=== PATIENT | male | born 1945 | race Caucasian/White ===

== ENCOUNTER 2017-12-16 12:13 | Day surgery (SDC) | payer OTHER, BC ==
[~2017-12-16] VITALS: Ht 182.9 cm; Wt 99.7 kg
[~2017-12-16 12:13] MED LIST: ALLEGRA ALLERG180 MG PO; DAILY VALUE1 EACH PO; FLONASE SENSIM9.9 ML BOTH NARES; FOLIC ACID0.4 MG PO; LO-DOSE ASPIRIN81 M2 PO; LOPRESSOR50 MG PO; NITROSTAT0.4 MG SL; OTEZLA30 MG PO; PLAVIX75 MG PO; PRAVACHOL40 MG PO; PRILOSEC20 MG PO; PRINIVIL10 MG PO; SINGULAIR10 MG PO; SKELAXIN800 MG PO; TREXALL5 MG PO; TYLENOL EXTRA500 MG PO; ULTRAM50 MG PO
[2017-12-16 13:28] VITALS: BP 133/64
[2017-12-16 19:15] VITALS: BP 173/79
[2017-12-16 23:25] VITALS: BP 174/88
[2017-12-17 04:20] VITALS: BP 148/75
[2017-12-17 07:30] VITALS: BP 150/66
[2017-12-17] MEDS ORDERED: TIZANIDINE HCL4 MG PO (08:21)
[2017-12-17] MEDS ORDERED: HYDROCODON-ACE1 EAC7 PO (08:21)
== END 2017-12-17 14:39 | disposition home or self-care (01) ==
LOC: SDC 12:13 → 2SOUTH 16:56 → 3EAST 16:56 → ENRESERV 17:00 → 3EAST 19:28
DX: M47.12 Other spondylosis with myelopathy, cervical region (principal); M48.02 Spinal stenosis, cervical region; M54.12 Radiculopathy, cervical region; I10 Essential (primary) hypertension; I25.2 Old myocardial infarction; Z79.82 Long term (current) use of aspirin; Z79.02 Long term (current) use of antithrombotics/antiplatelets; Z87.891 Personal history of nicotine dependence; Z95.1 Presence of aortocoronary bypass graft
CPT/HCPCS: 72020; 72040; 76000; 86850; 86900; 86901; C1713; G0378; J0690; J1100; J1170; J2405; J2710; J3010; J3480; J7643